=== PATIENT | female | born 1985 | race Caucasian/White ===

== ENCOUNTER 2024-01-31 15:28 | Emergency (ER) | payer OTHER, SELFPAY ==
[2024-01-31 16:20] LABS: Bilirubin Negative (Negative); Blood, Urine Negative (Negative); Clarity Clear (Clear); Glucose, Urine (Dipstick) Negative (Negative); Ketone, Urine Negative (Negative); Leukocyte Negative (Negative); Nitrite Negative (Negative); Protein, Urine (Dipstick) Negative (Neg-Trace); Specific Gravity, Urine 1.015 (1.005-1.030); Urobilinogen 0.2 mg/dL (Less than 2)
[2024-01-31 16:22] LABS: Pregnancy Test - Urine (BHCG) Negative (Negative)
[2024-01-31 16:23] LABS: Pregu Control Background? CLEAR/WHITE (CLR/WHITE); Pregu Control Bar Appear? YES (CONTROL BAR); Specific Gravity 1.015 (1.002-1.036)
[2024-01-31] MEDS ORDERED: Ketorolac Tromethamine 60 MG/2 ML VIAL ONE (16:24)
[2024-01-31 16:30] LABS: Bacteria/HPF 2+ HPF (None Seen); CAUTI Indications for Culture Pelvic or flank pain; RBC/HPF 0-3 HPF (0-3); Squamous Epithelial 0-3 HPF (0-3); Transitional Epithelial 0-3 HPF (None Seen); WBC/HPF 0-3 HPF (0-3)
[2024-01-31 16:31] LABS: Urine Culture Reflex No No
[2024-01-31] MEDS ORDERED: Ondansetron ODT 4 MG TAB ONE (16:31)
== END 2024-01-31 17:19 | disposition home or self-care (01) ==
LOC: NAV ERS 15:28
DX: S29.012A Strain of muscle and tendon of back wall of thorax, initial encounter (principal); M50.322 Other cervical disc degeneration at C5-C6 level; M51.34 Other intervertebral disc degeneration, thoracic region; E04.1 Nontoxic single thyroid nodule; X50.1XXA Overexertion from prolonged static or awkward postures, initial encounter
CPT/HCPCS: 72125; 72128; 81001; 81025; 87086; 96372; J1885; Q0162